=== PATIENT | female | born 1935 | race Caucasian/White ===

== ENCOUNTER 2019-06-18 11:27 | Observation (INO) ==
[2019-06-18 13:08] LABS: Basophils # 0.1 10*3/uL (0.0-0.2); Basophils % 1.3 % (0.0-0.8); Eosinophils # 0.4 10*3/uL (0.0-0.87); Eosinophils % 7.8 % (0.00-10.9); Hematocrit 36.1 VOL% (35.7-47.0); Immature Granulocytes % 0.4 %; Immature Granulocytes Absolute 0.02 #; Lymphocytes % 23.3 % (21.3-54.2); Mean Corpuscular HGB Conc 33.2 GM/DL (32-36); Mean Corpuscular Volume 101.1 FL (87-102); Mean Platelet Volume 9.8 FL (9.6-12.0); Monocytes % 11.4 % (1.7-12.7); Neutrophils % 55.8 % (38.7-73.9); Platelet Count 169 T/CUMM (130-400); Red Blood Count 3.57 MC/CUMM (3.8-5.5); Red Cell Distribution Width 13.1 % (9.3-17.3); White Blood Count 4.5 T/CUMM (4-12)
[2019-06-18 13:16] LABS: PT Patient Result 10.7 SECS (9.6-12.2); Partial Thromboplastin Time 26.6 SECS (20.8-36.0)
[2019-06-18 13:28] LABS: Apearance,Urine CLEAR (Clear); Bilirubin,Urine Negative (Negative); Blood, Urine Negative (Negative); Glucose,Urine (UA) Negative (Negative); Ketones,Urine Negative (Negative); Nitrite,Urine Negative (Negative); Protein,Urine Negative; RBC,Urine <1 /HPF (0-4); Urine Color Colorless (Yellow); Urine Specific Gravity 1.004 (1.001-1.035); Urine Urobilinogen < 2.0 EU/DL (0.2-1.0); WBC,Urine 1 /HPF (0-6)
[2019-06-18 13:29] LABS: Alanine Aminotransferase 23 U/L (13-56); Albumin 3.6 G/DL (3.4-5.0); Alkaline Phosphatase 94 U/L (45-117); Aspartate Amino Transferase 21 U/L (0-37); Bilirubin,Total < 0.39 MG/DL (0.2-1.0); Blood Urea Nitrogen 27 MG/DL (7-18); Calcium 8.4 MG/DL (8.5-10.1); Estimated Glom Filtration Rate 38 ML/MIN; Glucose 84 MG/DL (74-106); Osmolality,Calculated 276.8 MOS/KG (273-304); Total Protein 6.5 G/DL (6.4-8.3)
[2019-06-18 14:14] LABS: Barbiturates Screen,Urine Negative (Negative); Benzodiazepines Screen,Urine Negative (Negative); Cannabinoid Screen,Urine Negative (Negative); Opiate Screen,Urine Negative (Negative); Phencyclidine Screen,Urine Negative (Negative)
[2019-06-18] MEDS ORDERED: ACETAMINOPHEN 325 MG TABLET PO PRN (20:20)
[2019-06-18] MEDS ORDERED: DOCUSATE SODIUM 100 MG CAPSULE PO PRN (20:20)
[2019-06-18] MEDS ORDERED: ONDANSETRON 4 MG/2 ML VIAL IV PRN (20:20)
[2019-06-18 20:52] LABS: Thyroid Stimulating Hormone 2.24 uIU/ml (0.358-3.74)
[2019-06-18] MEDS ORDERED: NITROGLYCERIN SL 0.4 MG TABLET SL PRN (20:53)
[2019-06-18] MEDS ORDERED: NORTRIPTYLINE 25 MG CAPSULE PO SCH (21:00)
[2019-06-18] MEDS ORDERED: ROSUVASTATIN 20 MG TABLET PO SCH (21:00)
[2019-06-18] MEDS ORDERED: FUROSEMIDE 40 MG TABLET PO SCH (21:00)
[2019-06-18] MEDS: ASCORBIC ACID 500 MG TABLET PO SCH (22:05)
[2019-06-18] MEDS: METOPROLOL SUCCINATE XL 50 MG TABLET PO SCH (22:10)
[2019-06-18] MEDS ORDERED: SODIUM CHLORIDE 0.9% 1,000 ML IV SCH (22:30)
[2019-06-18] MEDS ORDERED: rOPINIRole 1 MG TABLET PO SCH (23:00)
[2019-06-19] MEDS: FLUTICASONE/SALMETEROL 250-50 DISKUS 14 DOSE INH SCH ×2 (03:05→09:18)
[2019-06-19 05:31] LABS: Basophils # 0.1 10*3/uL (0.0-0.2); Basophils % 0.8 % (0.0-0.8); Eosinophils # 0.4 10*3/uL (0.0-0.87); Eosinophils % 5.5 % (0.00-10.9); Hematocrit 37.2 VOL% (35.7-47.0); Hemoglobin 12.3 GM/DL (12.0-16.0); Immature Granulocytes % 0.3 %; Immature Granulocytes Absolute 0.02 #; Lymphocytes # 0.8 10*3/uL (1.4-4.0); Lymphocytes % 12.7 % (21.3-54.2); Mean Corpuscular HGB Conc 33.1 GM/DL (32-36); Mean Corpuscular Volume 101.1 FL (87-102); Mean Platelet Volume 9.4 FL (9.6-12.0); Monocytes % 9.1 % (1.7-12.7); Neutrophils % 71.6 % (38.7-73.9); Platelet Count 179 T/CUMM (130-400); Red Blood Count 3.68 MC/CUMM (3.8-5.5); Red Cell Distribution Width 12.9 % (9.3-17.3); White Blood Count 6.4 T/CUMM (4-12)
[2019-06-19 06:16] LABS: Calcium 8.4 MG/DL (8.5-10.1); Osmolality,Calculated 281.5 MOS/KG (273-304); Risk Ratio 2.19; VLDL CHOLESTEROL 20.6 MG/DL
[2019-06-19] MEDS ORDERED: ALBUTEROL 2.5 MG/3 ML NEB RESP TX PRN (07:00)
[2019-06-19] MEDS ORDERED: ALBUTEROL/IPRATROPIUM 3 ML NEB RESP TX SCH (07:00)
[2019-06-19] MEDS ORDERED: THEOPHYLLINE ER (24 HR) 300 MG CAPSULE PO SCH (09:00)
[2019-06-19] MEDS ORDERED: MULTIVITAMIN (CENTRUM) TABLET PO SCH (09:00)
[2019-06-19] MEDS ORDERED: PHENYTOIN ER 100 MG CAPSULE PO SCH (09:00)
[2019-06-19] MEDS ORDERED: CHOLECALCIFEROL 1,000 UNIT TABLET PO SCH (09:00)
[2019-06-19] MEDS ORDERED: TOPIRAMATE 25 MG TABLET PO SCH (09:00)
[2019-06-19] MEDS ORDERED: FLUTICASONE 50 MCG NASAL SPRAY 16 GM BOTTLE BOTH NARES SCH (09:00)
[2019-06-19] MEDS ORDERED: POTASSIUM CHLORIDE 10 MEQ TABLET PO SCH (09:00)
[2019-06-19] MEDS ORDERED: CLOPIDOGREL 75 MG TABLET PO SCH (09:00)
[2019-06-19] MEDS ORDERED: MONTELUKAST 10 MG TABLET PO SCH (09:00)
[2019-06-19] MEDS: ASCORBIC ACID 500 MG TABLET PO SCH (09:15)
[2019-06-19] MEDS: METOPROLOL SUCCINATE XL 50 MG TABLET PO SCH (09:17)
[2019-06-19] MEDS ORDERED: ALUMINUM/MAGNES/SIMETH MAX STR 30 ML UDCUP PO PRN (10:34)
[2019-06-19 12:18] VITALS: BP 102/50
[2019-06-20] MEDS ORDERED: PHENYTOIN ER 100 MG CAPSULE PO SCH (09:00)
== END 2019-06-19 14:52 | disposition home or self-care (01) ==
LOC: N.EDINP 11:27 → N.ED 11:27 → SUATTDRO 20:20 → N.4E 20:48
PROVIDERS: ADMIT Hospitalist; ATTEND Internal Medicine

== ENCOUNTER 2022-06-28 18:29 | Inpatient (IN) ==
[2022-06-28] MEDS ORDERED: ONDANSETRON 4 MG/2 ML VIAL IV STA (19:01)
[2022-06-28] MEDS ORDERED: methylPREDNISolone SOD SUC 125 MG/2 ML VIAL IV STA (19:01)
[2022-06-28] MEDS ORDERED: ALBUTEROL/IPRATROPIUM 3 ML NEB RESP TX STA (19:01)
[2022-06-28 19:24] LABS: Basophils % 0.8 % (0.0-0.8); Eosinophils # 0.1 10*3/uL (0.0-0.87); Eosinophils % 3.2 % (0.00-10.9); Hematocrit 31.3 VOL% (35.7-47.0); Hemoglobin 10.1 GM/DL (12.0-16.0); Immature Granulocytes % 0.3 %; Immature Granulocytes Absolute 0.01 #; Lymphocytes # 0.6 10*3/uL (1.4-4.0); Lymphocytes % 14.9 % (21.3-54.2); Mean Corpuscular HGB Conc 32.3 GM/DL (32-36); Mean Corpuscular Volume 93.2 FL (87-102); Mean Platelet Volume 9.1 FL (9.6-12.0); Monocytes # 0.4 10*3/uL (0.11-0.8); Monocytes % 9.9 % (1.7-12.7); Neutrophils % 70.9 % (38.7-73.9); Platelet Count 170 T/CUMM (130-400); Red Blood Count 3.36 MC/CUMM (3.8-5.5); Red Cell Distribution Width 13.6 % (9.3-17.3); White Blood Count 3.75 T/CUMM (4-12)
[2022-06-28] MEDS ORDERED: ALBUTEROL NEB SOLN 5 MG/ML 20 ML/BOTTLE CONT NEB SCH (19:30)
[2022-06-28 19:34] LABS: Alanine Aminotransferase 24 U/L (13-56); Albumin 3.4 G/DL (3.4-5.0); Alkaline Phosphatase 164 U/L (45-117); Aspartate Amino Transferase 27 U/L (0-37); Bilirubin,Total < 0.39 MG/DL (0.20-1.00); Blood Urea Nitrogen 23 MG/DL (7-18); Calcium 8.1 MG/DL (8.5-10.1); Carbon Dioxide 24 MMOL/L (21-32); Chloride 104 MMOL/L (98-107); Glucose 105 MG/DL (74-106); Osmolality,Calculated 280.5 MOS/KG (273-304); Potassium 3.5 MMOL/L (3.5-5.1); Sodium 139 MMOL/L (136-145); Total Protein 5.9 G/DL (6.4-8.2)
[2022-06-28] MEDS ORDERED: ALBUTEROL 2.5 MG/3 ML NEB RESP TX ONE (20:06)
[2022-06-28 20:24] LABS: INR 0.9; PT Patient Result 10.4 SECS (10.1-12.1); Partial Thromboplastin Time 23.3 SECS (23.7-32.9)
[2022-06-28] MEDS ORDERED: ONDANSETRON 4 MG/2 ML VIAL IV PRN (21:17)
[2022-06-28] MEDS ORDERED: MORPHINE 2 MG/1 ML SYRINGE IV PRN (21:17)
[2022-06-28] MEDS ORDERED: hydrALAZINE 20 MG/1 ML VIAL IV PRN (21:17)
[2022-06-28] MEDS ORDERED: ACETAMINOPHEN 325 MG TABLET PO PRN (21:17)
[2022-06-28] MEDS ORDERED: guaiFENesin 200 MG/10 ML UDCUP PO PRN (21:30)
[2022-06-28] MEDS: LEVOFLOXACIN INJ 500 MG/100 ML PREMIX IV SCH (23:03)
[2022-06-29] MEDS: ALBUTEROL/IPRATROPIUM 3 ML NEB RESP TX SCH ×4 (01:23→19:44)
[2022-06-29] MEDS ORDERED: NITROGLYCERIN SL 0.4 MG TABLET SL PRN (01:23)
[2022-06-29] MEDS ORDERED: traMADol 50 MG TABLET PO PRN (01:23)
[2022-06-29] MEDS: methylPREDNISolone SOD SUC 125 MG/2 ML VIAL IV SCH ×3 (04:11→21:48)
[2022-06-29 06:05] LABS: Basophils % 0.4 % (0.0-0.8); Hematocrit 31.4 VOL% (35.7-47.0); Immature Granulocytes % 0.4 %; Immature Granulocytes Absolute 0.02 #; Lymphocytes # 0.5 10*3/uL (1.4-4.0); Lymphocytes % 9.8 % (21.3-54.2); Mean Corpuscular HGB Conc 31.8 GM/DL (32-36); Mean Corpuscular Volume 92.6 FL (87-102); Mean Platelet Volume 9.3 FL (9.6-12.0); Monocytes # 0.3 10*3/uL (0.11-0.8); Monocytes % 6.3 % (1.7-12.7); Neutrophils % 83.1 % (38.7-73.9); Platelet Count 169 T/CUMM (130-400); Red Blood Count 3.39 MC/CUMM (3.8-5.5); Red Cell Distribution Width 13.7 % (9.3-17.3)
[2022-06-29 06:27] LABS: Calcium 8.5 MG/DL (8.5-10.1); Osmolality,Calculated 279.5 MOS/KG (273-304); Potassium 3.7 MMOL/L (3.5-5.1)
[2022-06-29] MEDS: PHENYTOIN ER 100 MG CAPSULE PO SCH ×2 (09:17→21:55)
[2022-06-29] MEDS: DICYCLOMINE 10 MG CAPSULE PO SCH ×4 (09:17→21:54)
[2022-06-29] MEDS: ASCORBIC ACID 500 MG TABLET PO SCH ×2 (09:17→21:56)
[2022-06-29] MEDS: ESCITALOPRAM 10 MG TABLET PO SCH (09:18)
[2022-06-29] MEDS: CHOLECALCIFEROL 1,000 UNIT TABLET PO SCH (09:18)
[2022-06-29] MEDS: FUROSEMIDE 40 MG TABLET PO SCH ×2 (09:19→21:56)
[2022-06-29] MEDS: PANTOPRAZOLE 40 MG TABLET PO SCH (09:19)
[2022-06-29] MEDS: MONTELUKAST 10 MG TABLET PO SCH (09:19)
[2022-06-29] MEDS: LEVOTHYROXINE 50 MCG TABLET PO SCH (09:19)
[2022-06-29] MEDS: MULTIVITAMIN (CENTRUM) TABLET PO SCH (09:19)
[2022-06-29] MEDS: POTASSIUM CHLORIDE 10 MEQ TABLET PO SCH (09:19)
[2022-06-29] MEDS: ASPIRIN EC 81 MG TABLET PO SCH (09:19)
[2022-06-29] MEDS: DICLOFENAC 1% GEL 100 GM TUBE TOP SCH ×4 (09:20→21:57)
[2022-06-29] MEDS: DORNASE ALFA 2.5 MG/2.5 ML VIAL RESP TX SCH ×2 (12:49→19:44)
[2022-06-29] MEDS: LEVOFLOXACIN INJ 500 MG/100 ML PREMIX IV SCH (21:48)
[2022-06-29] MEDS: NORTRIPTYLINE 25 MG CAPSULE PO SCH (21:54)
[2022-06-29] MEDS: DOXEPIN 25 MG CAPSULE PO SCH (21:54)
[2022-06-29] MEDS: ROSUVASTATIN 20 MG TABLET PO SCH (21:55)
[2022-06-29] MEDS: rOPINIRole 1 MG TABLET PO SCH (21:56)
[2022-06-29] MEDS: FLUTICASONE 50 MCG NASAL SPRAY 16 GM BOTTLE BOTH NARES SCH (21:57)
[2022-06-30] MEDS: ALBUTEROL/IPRATROPIUM 3 ML NEB RESP TX SCH ×4 (01:10→19:25)
[2022-06-30 05:48] LABS: Basophils % 0.5 % (0.0-0.8); Hematocrit 32.9 VOL% (35.7-47.0); Hemoglobin 10.3 GM/DL (12.0-16.0); Immature Granulocytes % 0.3 %; Immature Granulocytes Absolute 0.01 #; Lymphocytes # 0.4 10*3/uL (1.4-4.0); Lymphocytes % 10.9 % (21.3-54.2); Mean Corpuscular HGB Conc 31.3 GM/DL (32-36); Mean Platelet Volume 9.2 FL (9.6-12.0); Monocytes # 0.3 10*3/uL (0.11-0.8); Monocytes % 8.2 % (1.7-12.7); Neutrophils % 80.1 % (38.7-73.9); Platelet Count 171 T/CUMM (130-400); Red Cell Distribution Width 13.5 % (9.3-17.3); White Blood Count 3.67 T/CUMM (4-12)
[2022-06-30] MEDS: methylPREDNISolone SOD SUC 125 MG/2 ML VIAL IV SCH ×3 (05:52→21:03)
[2022-06-30] MEDS: LEVOTHYROXINE 50 MCG TABLET PO SCH (05:52)
[2022-06-30 05:59] LABS: INR 0.9; PT Patient Result 10.3 SECS (10.1-12.1)
[2022-06-30] MEDS: DORNASE ALFA 2.5 MG/2.5 ML VIAL RESP TX SCH ×2 (07:06→19:25)
[2022-06-30] MEDS ORDERED: diphenhydrAMINE 50 MG/1 ML VIAL IM ONE (07:30)
[2022-06-30] MEDS ORDERED: BENZONATATE 100 MG CAPSULE PO ONE (07:30)
[2022-06-30] MEDS ORDERED: LIDOCAINE 2% VISCOUS 100 ML BOTTLE SWISH/SPIT ONE (08:00)
[2022-06-30] MEDS ORDERED: LIDOCAINE 1% 20 ML VIAL MISC INJ ONE (08:00)
[2022-06-30] MEDS ORDERED: LIDOCAINE 2% 20 ML VIAL RESP TX ONE (08:00)
[2022-06-30] MEDS: PANTOPRAZOLE 40 MG TABLET PO SCH (11:02)
[2022-06-30] MEDS: CHOLECALCIFEROL 1,000 UNIT TABLET PO SCH (11:02)
[2022-06-30] MEDS: ESCITALOPRAM 10 MG TABLET PO SCH (11:03)
[2022-06-30] MEDS: MONTELUKAST 10 MG TABLET PO SCH (11:03)
[2022-06-30] MEDS: ASCORBIC ACID 500 MG TABLET PO SCH ×2 (11:03→21:09)
[2022-06-30] MEDS: FUROSEMIDE 40 MG TABLET PO SCH ×2 (11:03→21:11)
[2022-06-30] MEDS: DICYCLOMINE 10 MG CAPSULE PO SCH ×4 (11:04→21:11)
[2022-06-30] MEDS: ASPIRIN EC 81 MG TABLET PO SCH (11:04)
[2022-06-30] MEDS: POTASSIUM CHLORIDE 10 MEQ TABLET PO SCH (11:04)
[2022-06-30] MEDS: DICLOFENAC 1% GEL 100 GM TUBE TOP SCH ×4 (11:04→22:23)
[2022-06-30] MEDS: MULTIVITAMIN (CENTRUM) TABLET PO SCH (11:04)
[2022-06-30] MEDS ORDERED: PHENYTOIN ER 100 MG CAPSULE PO SCH (21:00)
[2022-06-30] MEDS: LEVOFLOXACIN INJ 500 MG/100 ML PREMIX IV SCH (21:03)
[2022-06-30] MEDS: ROSUVASTATIN 20 MG TABLET PO SCH (21:08)
[2022-06-30] MEDS: NORTRIPTYLINE 25 MG CAPSULE PO SCH (21:09)
[2022-06-30] MEDS: DOXEPIN 25 MG CAPSULE PO SCH (21:09)
[2022-06-30] MEDS: rOPINIRole 1 MG TABLET PO SCH (21:10)
[2022-06-30] MEDS: FLUTICASONE 50 MCG NASAL SPRAY 16 GM BOTTLE BOTH NARES SCH (22:22)
[2022-07-01] MEDS: ALBUTEROL/IPRATROPIUM 3 ML NEB RESP TX SCH ×2 (01:40→08:01)
[2022-07-01] MEDS: methylPREDNISolone SOD SUC 125 MG/2 ML VIAL IV SCH ×2 (05:18→11:41)
[2022-07-01] MEDS: LEVOTHYROXINE 50 MCG TABLET PO SCH (05:21)
[2022-07-01 05:46] LABS: Basophils % 0.2 % (0.0-0.8); Hematocrit 32.3 VOL% (35.7-47.0); Hemoglobin 10.4 GM/DL (12.0-16.0); Immature Granulocytes % 0.4 %; Immature Granulocytes Absolute 0.02 #; Lymphocytes # 0.5 10*3/uL (1.4-4.0); Lymphocytes % 9.7 % (21.3-54.2); Mean Corpuscular HGB Conc 32.2 GM/DL (32-36); Mean Corpuscular Volume 92.6 FL (87-102); Mean Platelet Volume 9.1 FL (9.6-12.0); Monocytes # 0.2 10*3/uL (0.11-0.8); Monocytes % 4.9 % (1.7-12.7); Neutrophils % 84.8 % (38.7-73.9); Platelet Count 183 T/CUMM (130-400); Red Blood Count 3.49 MC/CUMM (3.8-5.5); Red Cell Distribution Width 13.4 % (9.3-17.3); White Blood Count 4.87 T/CUMM (4-12)
[2022-07-01 06:06] LABS: Calcium 8.9 MG/DL (8.5-10.1); Osmolality,Calculated 285.3 MOS/KG (273-304)
[2022-07-01] MEDS: DORNASE ALFA 2.5 MG/2.5 ML VIAL RESP TX SCH (08:10)
[2022-07-01] MEDS: MULTIVITAMIN (CENTRUM) TABLET PO SCH (09:34)
[2022-07-01] MEDS: POTASSIUM CHLORIDE 10 MEQ TABLET PO SCH (09:34)
[2022-07-01] MEDS: FUROSEMIDE 40 MG TABLET PO SCH (09:35)
[2022-07-01] MEDS: DICYCLOMINE 10 MG CAPSULE PO SCH (09:35)
[2022-07-01] MEDS: ASCORBIC ACID 500 MG TABLET PO SCH (09:35)
[2022-07-01] MEDS: CHOLECALCIFEROL 1,000 UNIT TABLET PO SCH (09:35)
[2022-07-01] MEDS: MONTELUKAST 10 MG TABLET PO SCH (09:36)
[2022-07-01] MEDS: ASPIRIN EC 81 MG TABLET PO SCH (09:36)
[2022-07-01] MEDS: PANTOPRAZOLE 40 MG TABLET PO SCH (09:36)
[2022-07-01] MEDS: ESCITALOPRAM 10 MG TABLET PO SCH (09:36)
[2022-07-01] MEDS: DICLOFENAC 1% GEL 100 GM TUBE TOP SCH (09:37)
[2022-07-01] MEDS ORDERED: LEVOFLOXACIN 500 MG TABLET PO ONE (11:00)
[2022-07-01 11:54] VITALS: BP 129/80
[2022-07-03 22:16] LABS: M. Tuberculosis PCR Result Negative (Negative); M. Tuberculosis PCR Source BRONCH WASH
[2022-07-15] MEDS ORDERED: CYANOCOBALAMIN 1000 MCG/1 ML VIAL IM SCH (09:00)
== END 2022-07-01 13:03 | disposition home or self-care (01) | DRG 191 ==
LOC: N.ED 18:29 → N.EDINP 18:29 → SUATTDRO 22:34 → N.2W 23:49 → SUATTDRO 06-30 12:13
PROVIDERS: ADMIT Internal Medicine; ATTEND Emergency Medicine